=== PATIENT | male | born 1955 | race Caucasian/White ===

== ENCOUNTER 2018-10-17 08:58 | Outpatient (CLI) | payer MEDICARE, SELFPAY ==
[2018-10-17] VITALS (7 sets, daily range): BP systolic 122–170; BP diastolic 81–90; PULSE 85–93; RESP 16–20; TEMP 36.4; O2SAT 92–96
--- NOTE | 2018-10-17 09:03 | DI.RAD.S_ITS ---
PROCEDURE: PAIN L/S FACET INJ/BLK 1ST KRISTI COMPARISON: None. INDICATIONS: SPONDYLOSIS FINDINGS: Bilateral L3-4, and L4-5 needle tip localization is noted adjacent to the expected course of the L3 and L4 nerve roots respectively. IMPRESSION: Successful needle tip localization for subsequent epidural steroid injection in the perineural spaces bilaterally targeting the L3 and L4 nerve roots. Dictated by: Charles Benson M.D. on 10/17/2018 at 12:47 Approved by: Charles Benson M.D. on 10/17/2018 at 12:48
[2018-10-17] MEDS: MIDAZOLAM 5 MG/5 ML VIAL IV (10:11)
[2018-10-17] MEDS: fentaNYL 100 MCG/2 ML INJ IV (10:13)
[2018-10-17] MEDS: IOPAMIDOL 15 ML VIAL 3 ML INJ (10:20)
[2018-10-17] MEDS: LIDOCAINE 1% 20 ML INJ 10 ML INJ (10:21)
[2018-10-17] MEDS: BETAMETHASONE 30 MG/5 ML MDV 12 MG INJ (10:21)
[2018-10-17] MEDS: BUPIVACAINE 0.5% (PF) VIAL 2 ML INJ (10:21)
--- NOTE | 2018-10-17 10:22 | PC.NURSE ---
assisting pt off table and transporting to post proc area in stable condition
--- NOTE | 2018-10-17 10:23 | PM.PROC.1 ---
Procedures Date/Time Date of procedure: 10/17/18 Time of procedure: 10:23 General Procedure description: PREOP DIAGNOSIS 1. FACET ARTHROPATHY 2. AXIAL LBP 3. MULTILEVEL DDD POST OP DIAGNOSIS 1. FACET ARTHROPATHY 2. AXIAL LBP 3. MULTILEVEL DDD PROCEDURES 1. FLUORSCOPICALLY GUIDED CONTRAST CONTROLLED FACET JOINT INJECTIONS BILATERAL L3/4, L4/5 PHYSICIAN: Mazin Valdez DO INDICATIONS: Linda is referred by Dr. Vaca for treatment of Axial LBP FINDINGS Multilevel Facet Arthropathy with Clinically significant axial LBP DESCRIPTION OF PROCEDURE Fluoroscopically guided, contrast-controlled bilateral L3/4, L4/5 facet joint injections. Following denial of allergy and review of potential side effects and complications, including, but not necessarily limited to, infection, allergic reaction, local tissue breakdown, stroke, temporary or permanent nerve injury, paralysis, and possible , the patient indicated that the patient understood and agreed to proceed. An informed consent document was signed by the patient, witnessed by a nurse, and placed in the patient's chart. Additionally, other treatment options including medications, modalities, and physical therapy were reviewed with the patient. After review of previous anaesthesic history and IV conscious sedation the patient was deemed safe to proceed with todays procedure with IV conscious sedation as ASA class II designation. Safety time-out was performed to confirm patient ID, procedure to be performed and site of procedure. IV sedation was accomplished with a combination of 3mg of Versed and 50mcg of Fentanyl was administered by the RN after DO order, titrated to patient comfort during the course of the procedure while the patient remained responsive to all verbal commands. In the prone position, following sterile prep and drape of the lumbar region, the posterior aspect of the L3/4, L4/5 facet joints were identified fluoroscopically. The skin was anesthetized via a 25-gauge 1.5-inch needle with 1% lidocaine solution into the corresponding facet joints. At this point, a 22-gauge 3.5-inch spinal needle was atraumatically introduced and advanced under fluoroscopic guidance into the corresponding facet joints. Following negative aspiration, injections of approximately 0.2-cc of Isovue 200 confirmed interarticular placement without vascular uptake. The identical procedure was then performed at the L3/4, L4/5 facet joints on the left. Radiological data, including multiple fluoroscopic views of the lumbosacral spine, reveal a spinal needle at the L3/4, L4/5 facet joints bilaterally. Subsequent views show flow of contrast material both superiorly and inferiorly within the joint space without vascular or intrathecal uptake. At this point, a total of 0.5 cc including a mixture of 0.25 cc Marcaine and 0.25 cc betamethasone was injected without complication into each of the corresponding facet joints. The patient tolerated the procedure well without signs or symptoms of complications prior to transfer to the recovery area continued monitoring without incident. The patient was then transferred to the recovery area where they were observed for an appropriate period of time after the injection. The patient reported a VAS score of 7 prior to the procedure and a post-procedure VAS of 0. Total Fluoroscopy Time: 20.3 seconds Total Conscious Sedation Time: 24min POST OP INSTRUCTIONS The patient was provided a Pain Log to continue to record their response to the target-specific procedure prior to follow-up visit with their referring physician. Additionally, specific post-injection care instructions and a contact number to our office were provided if concerns arise regarding possible complications associated with the procedure are suspected. Mazin Valdez DO Complications: none
--- NOTE | 2018-10-17 11:16 | PC.NURSE ---
pt returned from post procedure awake and alert, able to move from w/c to chair with standby assist. Resumed monitoring from Demetria HERNANDEZ.
== END 2018-10-17 11:05 ==
PROVIDERS: PCP Internal Medicine Geriatric Medicine; Visit Provider Physical Medicine & Rehabilitation
DX: M47.816 Spondylosis without myelopathy or radiculopathy, lumbar region (principal); M47.817 Spondylosis without myelopathy or radiculopathy, lumbosacral region; M51.36 Other intervertebral disc degeneration, lumbar region; M54.5 Low back pain
CPT/HCPCS: 64493; 64494; 99152; J0702; J2250; J3010